=== PATIENT | male | born 1970 ===

== ENCOUNTER → 2017-12-29 | Outpatient (CLI) | payer OTHER ==
[2017-12-29 10:44] LABS: INR 0.99
[2017-12-29 10:56] LABS: PLATELET COUNT, AUTOMATED 254 K/uL (150-450)
== END ==
LOC: LAB 10:11
PROVIDERS: ATTEND Internal Medicine
DX: Z01.818 Encounter for other preprocedural examination (principal)
CPT/HCPCS: 36415; 82040; 82247; 82310; 82374; 82435; 82465; 82565; 82947; 83718; 84075; 84132; 84155; 84295; 84443; 84450; 84460; 84478; 84520; 85025; 85610; 85730

== ENCOUNTER → 2017-12-30 | Outpatient (CLI) | payer OTHER | LOC: LAB 08:20 | PROVIDERS: ATTEND Internal Medicine | DX: Z01.818 Encounter for other preprocedural examination (principal); R74.8 Abnormal levels of other serum enzymes | CPT/HCPCS: 81001 ==

== ENCOUNTER 2018-02-03 09:45 | Outpatient (RCR) | payer OTHER ==
--- NOTE | 2018-01-13 07:38 | PT INITIAL EVALUATION ---
MEDICAL DIAGNOSIS: Right [place] Hip Resurfacing TREATMENT DIAGNOSIS: Right [place] Hip Resurfacing, LE Weakness DATE OF ONSET: 01/05/19 SUBJECTIVE: Reji is a 47 year old male presenting to physical therapy s/p R [place] Hip Resurfacing 1 week prior. At this time pt reports no pain other than the occasional tightness along the incision and stiffness managed with ibuprofen and Flexeril. Prior the the surgery pt was very active, but had significant pain secondary to hip OA. Pt is unaware of any precautions at this time, but was told to keep his feet forward when possible and not cross his legs. REHAB PROBLEM LIST: Increased Pain Decreased ROM Decreased Strength Decreased Endurance Decreased Balance Decreased Function Decreased ADL's Decreased Mobility Decreased Gait PREVIOUS MEDICAL HISTORY: See EMR OBJECTIVE: ROM: Hip ROM (L,R): flexion: 113, 78 with groin pain, ext: 10, 6 with tightness, Abd: 28, 18 Strength: LE MMT (L, R): Hip: flexion: 5/5, 4+/5, ext: 4-/5, 4/5, Abd: 4+/5, 4/5, Add: 5/5, 5/5, Knee: ext: 5/5, 4+/5, flexion: 5/5, 5/5, Ankle: DF: 5/5, PF: 5/5. Pt unable to perform SLR on R side. Palpation: Pt has a large sterile bandage on the lateral aspect of the hip which will be removed on 01/13/18. Incision to be inspected a next session. Gait: Pt uses SPC for long distance ambulation, but uses nothing within the home. Gait significant for decreased WB on the R LE with shortened stance phase and lateral trunk swing. Balance: Pt unable to maintain SLS R without UE support Other Objective Findings: ASSESSMENT: Phuc presents with signs and symptoms consistent with recent hip resurfacing including generalized weakness, and abnormality of gait as outlined by the above listed deficits. Physical therapy is indicated for this patient to improve function with ADL's to return to prior level of function. Short Term Goals In 3 weeks pt will have full hip ROM for improved function with ADL's. In 3 weeks pt will demonstrate normal gait pattern for 3 laps for improved function with ADL's. In 6 weeks pt will improve strength to 5/5 in all major LE muscle groups for improved function with ADL's and recreational activities. Patient's Goals Improve function with ADL's and return to prior level of activity. PLAN: Patient to be seen for Manual Therapy/STM/MET Strengthening/condition Ice/Heat Range of Motion Ultrasound Stretching Iontophoresis Neuromuscular Re-ed Closed Chain Program Electrical Stim Posture/Body mechanics Gait Trg/Balance Trg Biofeedback Home Exercise Program Mech./Manual Traction Therapeutic Activities 3x/Week for 6 Weeks If you have any questions, comments, or concerns about this report or plan, please contact me at . Thank you, Flaquita Parish, PT, DPT, CLT MTDD
== END 2018-02-03 18:00 | disposition home or self-care (01) ==
LOC: PT 09:45
PROVIDERS: ATTEND Orthopaedic Surgery
DX: M16.11 Unilateral primary osteoarthritis, right hip (principal); M25.551 Pain in right hip
CPT/HCPCS: 97161

== ENCOUNTER → 2018-06-18 | Outpatient (CLI) | payer OTHER | LOC: LAB 16:04 | PROVIDERS: ATTEND Internal Medicine | DX: Z11.1 Encounter for screening for respiratory tuberculosis (principal) | CPT/HCPCS: 86580 ==